=== PATIENT | female | born 1935 | race Caucasian/White ===

== ENCOUNTER → 2017-04-07 | Outpatient (CLI) | payer OTHER ==
[~2017-04-07] VITALS: Ht 157.5 cm; Wt 70.3 kg
[~2017-04-07] MED LIST: ACID CONTROL150 MG PO; AMARYL4 MG PO; CLEOCIN300 MG PO; CLONAZEPAM0.5 MG PO; LEVOTHYROXINE50 MCG PO; METFORMIN HCL500 MG PO; METOPROLOL PO; MONTELUKAST SOD10 MG PO; OMEPRAZOLE40 M1 PO; PRAVASTATIN SOD40 MG PO; ST. JOSEPH ASPI81 MG PO
[2017-04-07 09:22] LABS: POINT-OF-CARE METER ID UU14107333
== END | disposition home or self-care (01) ==
LOC: AMB 08:51
PROVIDERS: Internal Medicine Gastroenterology
DX: K31.89 Other diseases of stomach and duodenum (principal); R63.4 Abnormal weight loss; Z85.038 Personal history of other malignant neoplasm of large intestine; J45.909 Unspecified asthma, uncomplicated; E11.9 Type 2 diabetes mellitus without complications; Z79.84 Long term (current) use of oral hypoglycemic drugs; K21.9 Gastro-esophageal reflux disease without esophagitis; E78.5 Hyperlipidemia, unspecified; I10 Essential (primary) hypertension; Z88.0 Allergy status to penicillin; Z91.012 Allergy to eggs; Z91.040 Latex allergy status
CPT/HCPCS: 82948; 88305; 88342 TC; 93005; C1726; J0330; J3010